=== PATIENT | female | born 2000 | race Caucasian/White ===

== ENCOUNTER 2024-05-23 12:38 | Outpatient (CLI) | payer BC, SELFPAY ==
--- NOTE | 2024-05-23 13:00 | CRLHL7_ITS ---
For Patients: As a result of the Cures Act, medical imaging exams and procedure reports are released immediately into your electronic medical record. You may view this report before your referring provider. If you have questions, please contact your health care provider. INDICATION: Assess viability and dating. TECHNIQUE: Transvaginal limited obstetric ultrasound examination of the pelvis was performed. Grayscale and color Doppler images were obtained. COMPARISON: None. FINDINGS: Uterus: Normal in echotexture. No suspicious masses. Endometrium: No significant endometrial free fluid. Intrauterine gestation: Yes. cardiac activity: Yes. 152 bpm. [place]-rump length: 13 mm. Estimated gestational age of 7 weeks and 4 days. Yolk sac: Normal. Perigestational hemorrhage: No. Estimated sonographic due date: 01/05/2025. Right Ovary: Measures 3.6 x 1.9 x 2.6 cm. No suspicious masses. Normal arterial and venous flow on color Doppler imaging. Left ovary: Measures 4.3 x 2 x 2.6 cm. No suspicious masses. Normal arterial and venous flow on color Doppler imaging. Cul-de-sac: No free fluid. IMPRESSION: Single viable intrauterine with estimated gestational age of 7 weeks and 4 days by crown-rump length, and estimated due date of 01/05/2025. Dictated by Joe Castro MD @ 05/23/2024 4:34:33 PM (Electronically Signed)
== END 2024-05-23 12:39 | disposition home or self-care (01) ==
LOC: US 12:38
PROVIDERS: Visit Provider Registered Nurse
DX: Z34.91 Encounter for supervision of normal pregnancy, unspecified, first trimester (principal); Z3A.01 Less than 8 weeks gestation of pregnancy
CPT/HCPCS: 76817; 80306; 86592; 86703; 86704; 86706; 86762; 86787; 86803; 86850; 86900; 86901; 87086; 87340; 87491; 87591

== ENCOUNTER 2024-10-17 11:16 | Outpatient (CLI) | payer BC, SELFPAY | END 2024-10-17 11:17 | disposition home or self-care (01) | LOC: US 11:17 | PROVIDERS: Visit Provider Advanced Practice Midwife | DX: O43.193 Other malformation of placenta, third trimester (principal); Z3A.30 30 weeks gestation of pregnancy | CPT/HCPCS: 76816; 76817; 86592 ==

== ENCOUNTER 2024-11-13 09:08 | Outpatient (CLI) | payer BC, SELFPAY | END 2024-11-13 09:09 | disposition home or self-care (01) | LOC: NFLDREF 11-14 14:31 | PROVIDERS: Visit Provider Advanced Practice Midwife | DX: R35.0 Frequency of micturition (principal); N89.8 Other specified noninflammatory disorders of vagina | CPT/HCPCS: 87086 ==

== ENCOUNTER 2024-12-06 14:13 | Outpatient (CLI) | payer BC, SELFPAY ==
[2024-12-06] VITALS (7 sets, daily range): BP systolic 101; BP diastolic 58; PULSE 83–93; RESP 18; TEMP 36.4; O2SAT 98–99
--- NOTE | 2024-12-06 18:53 | PC.OBNST ---
NST Note NST Note Start: 12/06/24 14:14 Freq: ONCE Status: Discharge Protocol: Document 12/06/24 18:16 BAW (Rec: 12/06/24 18:53 BAW No Response) NST Note 2 Para (# of births) 1 EDC 01/03/25 Gestational Age In Weeks & Days 36 Weeks & 0 Days Patient Presented with Complaint(s) of Decreased movement Reactive Yes Appropriate for Gestational Age Yes ZEINAB Naylor RNC Date 12/06/24 Reactive Yes Appropriate for Gestational Age Yes ZEINAB Collins RN Date 12/06/24 OB NST charge Yes Complete NST Note via Write Note Yes The provider's electronic signature indicates the NST is reactive/appropriate for gestational age. *Note to provider: If an addendum is required, open the patient's chart and click on the note under the Nurse/Allied Health tab.
== END 2024-12-06 17:51 | disposition home or self-care (01) ==
LOC: OB OUT 14:13 → OB 14:14
PROVIDERS: Visit Provider Advanced Practice Midwife
DX: O36.8130 Decreased fetal movements, third trimester, not applicable or unspecified (principal); Z3A.36 36 weeks gestation of pregnancy
CPT/HCPCS: 59025; G0463

== ENCOUNTER 2024-12-16 19:54 | Outpatient (CLI) | payer BC, SELFPAY ==
[2024-12-16 20:01] VITALS: BP 111/80; PULSE 104; PULSE 112; O2SAT 98
--- NOTE | 2024-12-16 23:14 | PC.OBNST ---
NST Note NST Note Start: 12/16/24 20:03 Freq: ONCE Status: Discharge Protocol: Document 12/16/24 23:13 RRP (Rec: 12/16/24 23:14 RRP [id number]) NST Note 2 Para (# of births) 1 EDC 01/03/25 Gestational Age In Weeks & Days 37 Weeks & 3 Days Patient Presented with Complaint(s) of Contractions/cramping Reactive Yes Appropriate for Gestational Age Yes RN Sandy Sullivan RN Date 12/16/24 Reactive Yes Appropriate for Gestational Age Yes ZEINAB Mata RN Date 12/16/24 OB NST charge Yes Complete NST Note via Write Note Yes The provider's electronic signature indicates the NST is reactive/appropriate for gestational age. *Note to provider: If an addendum is required, open the patient's chart and click on the note under the Nurse/Allied Health tab.
== END 2024-12-16 22:53 | disposition home or self-care (01) ==
LOC: OB OUT 19:55 → OB 19:58
PROVIDERS: Visit Provider Midwife
DX: O47.1 False labor at or after 37 completed weeks of gestation (principal); Z3A.37 37 weeks gestation of pregnancy
CPT/HCPCS: 59025; G0463

== ENCOUNTER 2024-12-21 00:40 | Outpatient (CLI) | payer BC, SELFPAY ==
[2024-12-21 01:00] VITALS: BP 115/72; PULSE 89; RESP 18; TEMP 36.5
--- NOTE | 2024-12-21 05:39 | PC.OBNST ---
NST Note NST Note Start: 12/21/24 00:45 Freq: ONCE Status: Active Protocol: Document 12/21/24 05:37 PORTIA (Rec: 12/21/24 05:38 MITRA [id number]) NST Note 2 Para (# of births) 1 EDC 01/03/25 Gestational Age In Weeks & Days 38 Weeks & 1 Days Patient Presented with Complaint(s) of Contractions/cramping Reactive Yes Appropriate for Gestational Age Yes RN Yasmani RN Date 12/21/24 Reactive Yes Appropriate for Gestational Age Yes RN Mak RN Date 12/21/24 OB NST charge Yes Complete NST Note via Write Note Yes The provider's electronic signature indicates the NST is reactive/appropriate for gestational age. *Note to provider: If an addendum is required, open the patient's chart and click on the note under the Nurse/Allied Health tab.
== END 2024-12-21 06:59 | disposition home or self-care (01) ==
LOC: OB OUT 00:40 → OB 00:40
PROVIDERS: Visit Provider Midwife
DX: O47.1 False labor at or after 37 completed weeks of gestation (principal); Z3A.38 38 weeks gestation of pregnancy
CPT/HCPCS: 59025; G0463

== ENCOUNTER 2024-12-29 04:20 | Inpatient (IN) | payer BC, SELFPAY ==
[2024-12-29] VITALS (13 sets, daily range): BP systolic 100–139; BP diastolic 63–86; PULSE 57–80; RESP 16; TEMP 36.4–37.1; O2SAT 96–97
[2024-12-29] MEDS: LIDOCAINE 1 % PF 30 ML INJECTION (05:02)
[2024-12-29] MEDS: lidocaine HCL 2 % JELLY (TOP) STERILE 6 ML TOPICAL (05:24)
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
--- NOTE | 2024-12-29 05:30 | PM.OBPNVD1 ---
OB - PN:Subj Subjective Date Seen: 12/29/24 Patient comments OB post-: perineal pain status: doing well [place] feeding status: exclusively OB - PN: Obj Exam Physical Exam: Vital signs: Pulse BP 69 108/77 12/29/24 05:27 12/29/24 05:27 Narrative: NEURO: Alert, oriented, appropriate gait and speech RESPIRATORY: Clear to auscultation CIRCULATORY: regular rate and rhythm ABDOMEN: Gravid, brenton Cervical exam: Deferred FHR: 120 baseline, accelerations present, variable and deceleration with pushing CONTRACTIONS: 2-3 minutes apart OB - PN: A/P Delivery Assessment and Plan Plan Patient was admitted for contractions and progressed normally. SROM noted at 0426 with clear fluid. Patient was complete at with pushing which began at 0436. of a viable male at 0443 in tub leaning back against tub with feet planted on base of tub. Vertex delivered OA.Restituted ROT. No nuchal cord or shoulder. Body delivered easily and without incident. passed to mothers abdomen with a vigorous cry. Cord was clamped and cut at > 5 minutes. APGARS were [ ] at one minute and [ ] at five minutes respectively. Patient was assisted to bed. Intact placenta with a 3 vessel cord delivered spontaneously at [ ]. Fundus firm. [1st/2nd degree] identified and repaired in typical fashion. QBL [ ] cc. Mother and baby stable; mother plans to breastfeed. weight pending.? ?
[2024-12-29] MEDS: ACETAMINOPHEN 500 MG TABLET 1000 MG PO (05:49)
--- NOTE | 2024-12-29 05:58 | W.PM.OBVAGDE ---
Documented by User: Graciela Tim 12/29/24 06:02 OB Procedure Vag Delivery Mother Details Mother Details: The patient is a 24 year-old, 2, Para 1, admitted on 12/29/24 at 39.2Days gestation. Additional Details Amniotic Membrane Status: SROM Amniotic Membrane Rupture Date: 12/29/24 Amniotic Membrane Rupture Time: 04:36 Amniotic Membrane Fluid Description: Clear Analgesia/Anesthesia Type: None Waterbirth: Yes Pitcoin: No Intrapartal Events: None Heart: heart tones during second stage were [] Delivery Details Delivery Date: 12/29/24 Delivery Time: 04:43 Route of delivery: Infant Gender: Male Viability: Alive; Heart Rate Present Position at Delivery: OA Delivery Details: Patient was admitted for contractions and progressed normally. SROM noted at 0426 with clear fluid. Patient was complete at with pushing which began at 0436. of a viable male at 0443 in tub leaning back against tub with feet planted on base of tub. Vertex delivered OA.Restituted ROT. No nuchal cord or shoulder. Body delivered easily and without incident. passed to mothers abdomen with a vigorous cry. Cord was clamped and cut at > 5 minutes. APGARS were 8 at one minute and 9 at five minutes respectively. Patient was assisted to bed. Intact placenta with a 3 vessel cord delivered spontaneously at 0453. Fundus firm. 1st degree right labial laceration identified and repaired in typical fashion. Left labial abrasion identified, hemostatic. QBL 25 cc. Mother and baby stable; mother plans to breastfeed. Infant weight pending.? 1 Minute Interval Total Score: 8 5 Minute Interval Total Score: 9 Additional Details Shoulder Dystocia: No Placenta Delivery Time: 04:53 Placental Delivery Description: Spontaneous Delivery repair: Vicryl Procedure Done: Global Blood Loss: 25 Laceration: Labial (Right first degree and left abrasion) Blood Loss Measurement Type: QBL (25) Sponge/Need Count Correct: Yes Cord Vessel Description: 3 Vessels Event Summary Status: Mother and were stable after delivery. Disposition: floor Documented by User: Nereyda Garvin CNM 12/29/24 06:14 OB Procedure Vag Delivery Mother Details : 2 Para: 2 Weeks Gestation: 39.2 Admission Date: 12/29/24 Additional Details Labor Onset: 03:00 Complete: 04:36 Pushin:36 Heart: heart tones during second stage were continuously monitored, Category II with intermittent late decelerations, moderate variability with accelerations. Pt delivered shortly after arrival. Delivery Details Delivery Details: Aleyda is a 24 yr old at 39.2 weeks Patient was admitted for contractions and progressed normally. SROM noted at 0426 with clear fluid. Patient was assumed complete with SROM and began pushing immediately after at 0436. of a viable male at 0443 in tub leaning back against tub with feet planted on base of tub. Vertex delivered OA.Restituted ROT. No nuchal cord or shoulder. Body delivered easily and without incident. passed to mothers abdomen with a vigorous cry. Cord was clamped and cut at > 5 minutes. APGARS were 8 at one minute and 9 at five minutes respectively. Patient was assisted to bed. Intact placenta with a 3 vessel cord delivered spontaneously at 0453, marginal cord insertion. Fundus firm. 1st degree right labial laceration identified and repaired in typical fashion with 1% lidocaine. Left labial abrasion identified, hemostatic. QBL 25 cc. Mother and baby stable; mother plans to breastfeed. Infant weight 7lbs 12oz Shoulder dystocia: no? Nuchal cord: no? Meconium stained?fluid: no? Water : yes? ? Bleeding controlled with fundal massage.? ? Bleeding?post delivery?was: minimal. ?The fundus was firm to palpation.? Blood loss: 25?mL.? Blood loss measurement type: QBL? ? ? Sponge,?lap?and needles counts are correct.? Mother and were stable after delivery.?
[2024-12-29] MEDS: DOCUSATE SODIUM 100 MG CAPSULE PO (09:23)
[2024-12-29] MEDS: IBUPROFEN 600 MG TABLET PO ×2 (12:10→21:11)
[2024-12-29] MEDS: LANOLIN CREAM 1 APPLIC TOPICAL (21:33)
[2024-12-30 01:58] VITALS: BP 105/68; PULSE 59; RESP 16; TEMP 36.6; O2SAT 97
--- NOTE | 2024-12-30 07:55 | PM.OBDSVD1 ---
DS: Providers Provider Date Seen: 12/30/24 Date of admission: 12/29/24 04:20 Primary care physician: Not a Local Provider Admitting Clinician: Nereyda Garvin CNM Attending Physician on discharge: Nereyda Garvin CNM Date of Discharge: 12/30/24 DS: Diagnosis Discharge Diagnosis (1) Bipolar 2 disorder: Status: Acute (2) PTSD (post-traumatic stress disorder): Status: Acute (3) Anxiety and depression: Status: Acute (4) Borderline personality disorder: Status: Acute (5) Lactating mother: Status: Acute (6) care following vaginal delivery: Status: Acute Exam Narrative: Exam Narrative: GENERAL APPEARANCE:? normal affect, alert, no distress? MOOD:? appropriate? CHEST:? clear to auscultation and percussion? HEART:? regular rate and rhythm? ABDOMEN:? soft, non-tender the uterine fundus is U/2 and is appropriate for the stage of recovery.? PERINEUM:? mild edema of the perineum, there is a labial laceration that is healing well.? EXTREMITIES:? normal and no edema? Const: Vital Signs, click to edit/add: Vital Signs - 24 hr 12/29/24 12:00 12/29/24 16:14 12/29/24 21:27 Temperature 98.4 F 98.7 F 97.6 F Pulse Rate [Pulse Oximeter] 61 62 63 Respiratory Rate 16 16 16 Blood Pressure [Le ft Arm] 104/63 112/73 108/63 Pulse Oximetry 96 97 96 Oxygen Delivery Me thod Room Air Room Air Room Air 12/30/24 01:58 Temperature 97.8 F Pulse Rate [Pulse Oximeter] 59 L Respiratory Rate 16 Blood Pressure [Le ft Arm] 105/68 Pulse Oximetry 97 Oxygen Delivery Me thod Room Air Documenting provider has reviewed patient's vital signs: yes OB - DS: Summary Hospital Course Hospital Course: Aleyda is a 24 year old G 2 P 2 at 39.2 weeks gestation that was admitted to the Center on 12/29/24 for spontaneous labor. She had an uncomplicated vaginal delivery. She delivered a viable male . She is breast feeding and feels it is going very well. the patient has done well. Her pain is well controlled with current medications.? She has no new complaints.? Urinary output is adequate and she is voiding without difficulty.? Has a good appetite, is tolerating a general diet, is passing flatus, and has not yet had a bowel movement.? Has scant amount of rubra lochia.? She is ambulating well. Peripartum Data delivery method: Vaginal Laceration description: Labial Episiotomy description: None Infant Gender: Male Discharge Plan: Home Status at Discharge Functional status at discharge: independent ambulation Overall status at discharge: patient is progressing back to baseline Time Spent with Patient Time attestation: Total time spent providing and/or coordinating discharge services: Discharge Plan Discharge Disposition: Home, Self-Care Date of Admission: 12/29/24 04:20 Attending Provider on Discharge: Clare Amanda Primary Care Provider: Provider,Not a Local Condition: Stable Anticipated Discharge Date/Time: 12/30/24 10:00 Discharge Medications: New docusate sodium 100 mg Capsule 100 mg PO DAILY Qty: 100 0RF Rx Instructions: Take 1-2 tablets daily as needed for constipation. ibuprofen 600 mg Tablet 600 mg PO Q6H PRNQty: 60 0RF Continued magnesium glycinate 100 mg magnesium capsule 200 mg PO DAILY sertraline 50 mg tablet 50 mg PO QDAY Qty: 90 3RF DHA 200 mg capsule 200 mg PO DAILY prochlorperazine maleate [Compazine] 5 mg tablet 5 mg PO QID PRN Discontinued ferrous sulfate [Feosol] 325 mg (65 mg iron) tablet 325 mg PO QDAY ondansetron HCl 4 mg tablet 4 mg PO Q8H Qty: 90 0RF Discharge Orders: Discharge Order (Routine); Ordered 12/30/24 Ordered By: Clare Amanda Patient Education: OB Vaginal/Breast Feeding Additional Instructions: Discharge instructions were reviewed with the patient including signs and symptoms of infection and home going medications.? Lifting Restrictions: 20 pounds for 6? weeks? ?? Do not drive while taking narcotic pain meds.? Off Work or School for 6 weeks.? ?? Symptoms to report to doctor:? -Bleeding that saturates more than one pad per hour? -Passing clots larger than the size of a golf ball? -Pain not relieved by prescribed medication? -Fever above 100.4 degrees Fahrenheit? -A foul vaginal odor? -Difficulty in emotions, mood and functions? -Thoughts of hurting yourself and/or ? -Painful, reddened area in your breast? -Any drainage, redness or tenderness in your IV/epidural site? -Severe headache that doesn't improve after taking medications? -Changes in vision, including temporary loss of vision, blurred vision, and/or light sensitivity? -Upper abdominal pain (usually under ribs on the right side)? -Decrease in urination or painful, frequent urinating? -Chest pain? -Shortness of breath? -Tenderness or pain with redness and/swelling in the calf(s) of your leg? ?? Follow Up in clinic in 2 and 6 weeks.? ?? consultation services are available to all mothers and babies for the first year after delivery.? To make an appointment, please call [phone].? Activity Level: Activity as Tolerated Discharge Diet: Regular Follow Up Appointments: [facility] [Provider Group] Provider,Not a Local [Primary Care Provider] - Forms: MyHealth Info Instructions
== END 2024-12-30 09:44 | disposition home or self-care (01) | DRG 560 ==
LOC: OB OUT 04:39 → OB 04:39
PROVIDERS: Admitting Provider Advanced Practice Midwife; Visit Provider Advanced Practice Midwife
DX: O99.344 Other mental disorders complicating childbirth (principal); F31.81 Bipolar II disorder; F43.10 Post-traumatic stress disorder, unspecified; F60.3 Borderline personality disorder; F41.9 Anxiety disorder, unspecified; Z91.410 Personal history of adult physical and sexual abuse; Z91.411 Personal history of adult psychological abuse; O70.0 First degree perineal laceration during delivery; F14.11 Cocaine abuse, in remission; G43.909 Migraine, unspecified, not intractable, without status migrainosus; Z3A.39 39 weeks gestation of pregnancy; Z37.0 Single live birth
CPT/HCPCS: 86592; A9270; J2003

== ENCOUNTER 2025-01-14 08:26 | Outpatient (CLI) | payer BC, SELFPAY ==
--- NOTE | 2025-01-14 15:50 | W.PM.LAC.MC ---
Consult Note - Mom Date of Visit Date of visit: 01/14/25 Reason for consultation: Assistance Needed and Other (possible oversupply og milk) Visit Code: Visit Patient's Information Phone number: [phone] : 2 Para: 2 Allergies No Known Drug Allergies Allergy (Verified 01/12/25 10:08) Mother's Medical History: Medical History (Updated 01/12/25 @ 14:38 by Clare Amanda CNM) Nausea and vomiting of , antepartum ?O21.9 - Vomiting of , unspecified (ICD-10) Pelvic pain affecting ?O26.899 - Other specified related conditions, unspecified trimester (ICD-10) ?R10.2 - Pelvic and perineal pain (ICD-10) Back pain affecting ?O99.891 - Other specified diseases and conditions complicating (ICD-10) ?M54.9 - Dorsalgia, unspecified (ICD-10) POTS (postural orthostatic tachycardia syndrome) ?G90.A - Postural orthostatic tachycardia syndrome [POTS] (ICD-10) Panic disorder with agoraphobia ?F40.01 - Agoraphobia with panic disorder (ICD-10) Family history of congenital heart disease ?Z82.79 - Family history of other congenital malformations, deformations and chromosomal abnormalities (ICD-10) Chronic abdominal pain ?R10.9 - Unspecified abdominal pain (ICD-10) ?G89.29 - Other chronic pain (ICD-10) Bipolar 2 disorder ?F31.81 - Bipolar II disorder (ICD-10) Migraines ?G43.909 - Migraine, unspecified, not intractable, without status migrainosus (ICD-10) PTSD (post-traumatic stress disorder) ?F43.10 - Post-traumatic stress disorder, unspecified (ICD-10) Anxiety and depression ?F41.9 - Anxiety disorder, unspecified (ICD-10) ?F32.A - Depression, unspecified (ICD-10) Borderline personality disorder ?F60.3 - Borderline personality disorder (ICD-10) Abuse Drug use ?F19.90 - Other psychoactive substance use, unspecified, uncomplicated (ICD-10) Spontaneous vaginal delivery ?O80 - Encounter for full-term uncomplicated delivery (ICD-10) Work Plans: return to work Feb 2025 Delivery Information Delivery type: Vaginal Gestational Age: 39+2 Gestational Weight For Age: AGA Weight: 3.52 kg Discharge Weight: 3.391 kg Percentage weight loss: 3.7 Baby's Information Baby's Age at Visit: 16 days [facility] Ja[facility]: No Past Experience Past Experience: Yes (13 mos with first child) Current Frequency of Day Feedings: every 1.5-2 hours Frequency of Night Feedings: q2-3 hours Suck: strong, comfortable Latch: wide, deep; on and off some with letdown Length of Time: 10-15 min, 1 side only most feeding Goals: at least 1 year Pumping Pumping: Yes Quantity Pumped: 2-3 x/day; gets 8-10 oz/pump after a feeding, also Haakaa multiple times Supplementing EBM Supplement: No Formula Supplement: No Baby Elimination Number of Wet Diapers a Day: ea feeding Number of BM a Day: almost every feeding; yellow, seedy Breast/Nipple Condition Breast Information: Breasts are symmetrical with rounded lower quadrants, intramammary distance is less than 1.5 inches. No erythema. Nipples are supple, everted prior to feeding. No issues with mastitis; had one clogged area when milk came in but fed through it and it resolved Breast Shape: Round Engorgement: No Maternal Nipple Condition - Left: Common Nipple Maternal Nipple Condition - Right: Common Nipple Sore Nipples: No Baby Assessment Skin: Normal Tongue/frenulum: Normal/elastic Palate: Average Lips: Relaxed and Symmetrical Jaw Alignment: Symmetrical Mucosa: [place], moist Onsite Observation Pre-Feed weight: 3.74 kg (up 12 oz from last clinic weight 13 days ago) Post-Feed weight: 3.792 kg Milk Transferred (mL): 52 (plus large spit up, approx 25-30ml) Position: Cross cradle Attachment/latch-on achieved: Easily Suck pattern: Suck burst and normal rest Swallow: Audible, consistent and Gulping (with initial letdown) Behavior following feed: Alert, content Pre-Nursing Left Nipple: Within Normal Limits Pre-Nursing Right Nipple: Within Normal Limits Post-Nursing Left Nipple: Within Normal Limits Post-Nursing Right Nipple: Within Normal Limits Assessments/Interventions Assessments/Interventions: Srinivas latched well to mom's RIGHT breast, latched easily and stayed nursing for 7 minutes. He is audibly guzzling milk and some squeaking noises are heard as he manages mom's milk flow. he comes off the breast and relatches twice at the beginning of the feeding; she says this is pretty typical behavior for him. Transferred 12 ml of milk that we measured; srinivas had a large spit up just before being weighed-estimate 25-30 ml of milk based on amount spit up on mom's clothes, burp cloth. Mom relatched him to her RIGHT breast and he transferred another 18ml of milk Srinivas then latched to mom's LEFT breast, latched well and more comfortably and nursed for another 10 minutes. Transferred 30 ml of milk. Transferred 52 ml total that was measurable. In discussing mom's pumping routine: she is pumping after his first morning feeding and gets 8-10 oz in about 10-15 minutes of pumping. She is also pumping at least 1 more time, often 2 more times in the afternoon and evening due to fullness and gets another 8-10 oz ea pump; mostly around 8 oz She also uses the Haakaa with light suction during feedings to catch the letdown she has. She is storing 20-30oz of extra milk ea day. She has both a Medela pump n-style pump as well as a Zomee wearable pump. Discussed the amount of milk she has is likely adding to him having a difficult managing her flow/letdown, causing him to chug milk, adding to his spitting up and then needing to feed frequently. Discussed a plan for her to begin pumping less milk and slowly decreasing her supply while also trying to prevent complication of plugged ducts and/or mastitis. Recommend the following given a baseline of approx 8oz/pump session: Keep AM pump the same as she would still like to have some to freeze every day Try pumping only 7oz for the next 1-2 pumps x2-3 days; if this is comfortable then pump 6 oz/pump for 2-3 days, then pump 5oz/pump for 2-3 days and continue dropping 1oz/pump until she is down to 1-2 oz and can be comfortable. Goal is to not NEED to pump in the afternoon if she is home with the baby and able to breastfeed him. Mom does have some extra milk she is giving her 2 year old; discussed she can continue pumping a bit in the afternoon if she wants to maintain this stock supply. Discussed role of the Edward can also be adding to the increased supply; she could try a [place], which acts like more of a door to door fundraising collector and can stay in place more easily without the suction maneuver to prevent pulling milk and thereby increasing supply. Aleyda does report pumping is sometimes uncomfortable; discussed pump settings for both Pump and Style and Zomee. Nipples measured at 20 mm, so recommend flange size 22-24mm (she's not sure what she has). Discussed the Zomee flange program (she can call and should be able to get new flange sizes that fit well); also discussed Zomee pump settings that will shut off when she has pumped desired amount of milk that might help for her down regulation. Education provided: Supply/demand nature of milk supply and Pumping for milk management Follow-Up Suggested follow up: Appointment as needed Time Spent Time spent with patient (min): 75 (reviewing EMR and face to face with patient and ) Meds Home Medications and Allergies Home Medications ?Medication ?Instructions ?Recorded ?Confirmed ?Type magnesium glycinate 200 mg PO DAILY 10/31/24 01/14/25 History prochlorperazine maleate 5 mg 5 mg PO QID PRN 11/28/24 01/12/25 History tablet (Compazine) Allergies Allergy/AdvReac Type Severity Reaction Status Date / Time No Known Drug Allergies Allergy Verified 01/12/25 10:08
== END 2025-01-14 08:27 | disposition home or self-care (01) ==
PROVIDERS: Visit Provider Obstetrics & Gynecology
DX: Z39.1 Encounter for care and examination of lactating mother (principal)
CPT/HCPCS: G0463

== ENCOUNTER 2025-01-30 08:30 | Outpatient (RCR) | payer BC, SELFPAY | END 2025-05-30 23:59 | disposition home or self-care (01) | PROVIDERS: Visit Provider Advanced Practice Midwife | DX: O99.891 Other specified diseases and conditions complicating pregnancy (principal); M54.50 Low back pain, unspecified; Z51.89 Encounter for other specified aftercare | CPT/HCPCS: 87081; 87653; 97110; 97140; 97162; 97530; 97535 ==

== ENCOUNTER 2025-03-31 12:12 | Outpatient (CLI) | payer BC, SELFPAY ==
--- NOTE | 2025-03-31 13:59 | W.PM.LAC.MC ---
Consult Note - Mom Date of Visit Date of visit: 03/31/25 Reason for consultation: Assistance Needed and Infant Weight Concern Visit Code: Visit Patient's Information Phone number: [phone] Para: 2 Allergies No Known Drug Allergies Allergy (Verified 03/05/25 09:10) Mother's Medical History: Medical History (Updated 03/11/25 @ 11:03 by Kallie Montalvo) Nausea and vomiting of , antepartum ?O21.9 - Vomiting of , unspecified (ICD-10) Pelvic pain affecting ?O26.899 - Other specified related conditions, unspecified trimester (ICD-10) ?R10.2 - Pelvic and perineal pain (ICD-10) Back pain affecting ?O99.891 - Other specified diseases and conditions complicating (ICD-10) ?M54.9 - Dorsalgia, unspecified (ICD-10) POTS (postural orthostatic tachycardia syndrome) ?G90.A - Postural orthostatic tachycardia syndrome [POTS] (ICD-10) Panic disorder with agoraphobia ?F40.01 - Agoraphobia with panic disorder (ICD-10) Family history of congenital heart disease ?Z82.79 - Family history of other congenital malformations, deformations and chromosomal abnormalities (ICD-10) Chronic abdominal pain ?R10.9 - Unspecified abdominal pain (ICD-10) ?G89.29 - Other chronic pain (ICD-10) Bipolar 2 disorder ?F31.81 - Bipolar II disorder (ICD-10) Migraines ?G43.909 - Migraine, unspecified, not intractable, without status migrainosus (ICD-10) PTSD (post-traumatic stress disorder) ?F43.10 - Post-traumatic stress disorder, unspecified (ICD-10) Anxiety and depression ?F41.9 - Anxiety disorder, unspecified (ICD-10) ?F32.A - Depression, unspecified (ICD-10) Borderline personality disorder ?F60.3 - Borderline personality disorder (ICD-10) Abuse Drug use ?F19.90 - Other psychoactive substance use, unspecified, uncomplicated (ICD-10) Spontaneous vaginal delivery ?O80 - Encounter for full-term uncomplicated delivery (ICD-10) Work Plans: working 5-7 days/week, varies some Delivery Information Delivery type: Vaginal Gestational Age: 39+2 Gestational Weight For Age: AGA Weight: 3.52 kg Discharge Weight: 3.391 kg Percentage weight loss: 3.7 Baby's Information Baby's Age at Visit: 3 months Baby's Provider or Clinic: [facility] Jaundice: No Past Experience Past Experience: Yes Current Frequency of Day Feedings: every 1.5-2 hours, sometimes 3 hrs Frequency of Night Feedings: 3-5 hr stretches at night Both Breasts: No (usually one side/feeding; prefers mom's RIGHT side) Suck: strong per mom Latch: comfortable Length of Time: 10-15 min Goals: at least 1 year Pumping Pumping: Yes Quantity Pumped: 4-7 oz/pump every 2-3 hrs while working Supplementing EBM Supplement: Yes (takes 4-4.5oz/bottle, at least 1x/day, sometimes 2x) Formula Supplement: No Baby Elimination Number of Wet Diapers a Day: 6 or more/day Number of BM a Day: every few days, large blowouts, soft Breast/Nipple Condition Breast Shape: Round Engorgement: No Maternal Nipple Condition - Left: Common Nipple Maternal Nipple Condition - Right: Common Nipple Sore Nipples: No Baby Assessment Skin: Normal Tongue/frenulum: Normal/elastic Palate: Average Lips: Relaxed and Symmetrical Jaw Alignment: Symmetrical Mucosa: [place], moist Onsite Observation Pre-Feed weight: 5.26 kg Post-Feed weight: 5.332 kg Milk Transferred (mL): 72 Position: Cross cradle Attachment/latch-on achieved: Easily Suck pattern: Suck burst and normal rest Swallow: Audible, consistent Behavior following feed: Alert, content Pre-Nursing Left Nipple: Within Normal Limits Pre-Nursing Right Nipple: Within Normal Limits Post-Nursing Left Nipple: Within Normal Limits Post-Nursing Right Nipple: Within Normal Limits Assessments/Interventions Assessments/Interventions: Babe latched to moms right side, nursed for 12 minutes and then came off; Transferred 52 ml Mom attempted to latch him to her left side, baby on and off, smiling at mom, clearly not interested in feeding more. After about 5 minutes, mom tried latching him to her right side again (his preferred side), he latched for another 5 min and transferred 20 ml bismark Total milk transferred was 72 ml Babe content with this, smiling, happy. Mild spit up happened after this feeding, not as much as he usually does per mom. When mom pumps at work, she gets 4-7 oz every 2-3 hours Does not appear that milk supply is an issue; more likely her supply has settled down from the first few months and [place] is needing to work harder for the milk she has and his suck needs to be strengthened while also being able to keep the milk down. Feeding Plan: Offer both breasts ea feeding; he may want/need a 5-15 min rest between sides use some breast compression to get him started on the 2nd side if he's reluctant knowing he prefers mom's right side, get creative on his latch to the left side continue to offer bottle feed 2x/day for the extra calories before going to formula, consider pump and bottling for 3-5 days to determine if it's low calorie milk or he's just not getting enough intake or keeping it down ask his Primary provider if an increase in Pepcid would be warranted Follow-Up Suggested follow up: Appointment as needed Time Spent Time spent with patient (min): 75 Meds Home Medications and Allergies Home Medications ?Medication ?Instructions ?Recorded ?Confirmed ?Type prochlorperazine maleate 5 mg 5 mg PO QID PRN 11/28/24 03/05/25 History tablet (Compazine) sertraline 50 mg tablet 50 mg PO QDAY #90 tabs 12/19/24 03/05/25 Rx diaphragms, contoured 65 mm-80 mm #1 ea 02/10/25 03/05/25 Rx vaginal (Caya Contoured) Allergies Allergy/AdvReac Type Severity Reaction Status Date / Time No Known Drug Allergies Allergy Verified 03/05/25 09:10
== END 2025-03-31 12:13 | disposition home or self-care (01) ==
LOC: OB LAC 12:13
PROVIDERS: PCP Nurse Practitioner Family; Visit Provider Obstetrics & Gynecology
DX: Z39.1 Encounter for care and examination of lactating mother (principal)
CPT/HCPCS: G0463

== ENCOUNTER 2025-07-03 11:13 | Outpatient (CLI) | payer BC, SELFPAY | END 2025-07-03 11:14 | disposition home or self-care (01) | PROVIDERS: PCP Nurse Practitioner Family; Visit Provider Nurse Practitioner Family | DX: R61 Generalized hyperhidrosis (principal) | CPT/HCPCS: 80053; 82306; 82607; 84443 ==